=== PATIENT | female | born 1975 | race Caucasian/White ===

== ENCOUNTER 2018-08-17 08:33 | Day surgery (SDC) | payer OTHER ==
[2018-08-17] MEDS ORDERED: Xylocaine-Mpf 2% 5 Ml Vial IJ ONE (08:34)
[2018-08-17] MEDS ORDERED: DIPRIVAN 200 MG/20 ML IV ONE (08:34)
[2018-08-17] MEDS ORDERED: Ketamine HCl 50 MG/ML IJ ONE (08:34)
[2018-08-17] MEDS ORDERED: Depo-Medrol 40 MG/ML IM ONE (08:34)
--- NOTE | 2018-08-17 12:07 | XRAY ---
13 seconds of fluoroscopy was used in surgery for bilateral L4-L5 and L5-S1 MBB.
--- NOTE | 2018-08-17 12:07 | XRAY ---
Indication: Bilateral L4-S1 MBB. Intraoperative fluoroscopy was provided for 13 seconds. Single digital spot image submitted for interpretation demonstrates posterior needle tips projecting over the expected course of the left and right L4-S1 nerve roots. Correlate with intraoperative findings/report.
[2018-08-17] MEDS ORDERED: Lactated Ringers 1,000 ML IV ONE (14:52)
== END 2018-08-17 11:06 | disposition home or self-care (01) ==
LOC: SDC-PAIN 08:33
PROVIDERS: ATTEND Psychiatry & Neurology Pain Medicine
DX: M47.816 Spondylosis without myelopathy or radiculopathy, lumbar region (principal); I10 Essential (primary) hypertension; E78.5 Hyperlipidemia, unspecified; F32.9 Major depressive disorder, single episode, unspecified; Z79.899 Other long term (current) drug therapy
CPT/HCPCS: 64493; 64494; 72020; 77002; 82962; 84703; J1030; J2704

== ENCOUNTER 2018-10-05 08:58 | Day surgery (SDC) | payer OTHER ==
[2018-10-05] MEDS ORDERED: Marcaine 0.5% SDV 10 ML IJ ONE (08:59)
[2018-10-05] MEDS ORDERED: DIPRIVAN 200 MG/20 ML IV ONE (11:02)
[2018-10-05] MEDS ORDERED: Ketamine HCl 50 MG/ML ONE (11:02)
--- NOTE | 2018-10-05 12:08 | XRAY ---
Indication: Bilateral L4-S1 MBB. Intraoperative fluoroscopy was provided for 5 seconds. Single digital spot image submitted for interpretation demonstrates posterior needle tips projecting over the expected course of the left and right L4-S1 nerve roots. Correlate with intraoperative findings/report.
--- NOTE | 2018-10-05 12:10 | XRAY ---
5 seconds of fluoroscopy was used in surgery for bilateral L4-L5 and L5-S1 MBB.
[2018-10-05] MEDS ORDERED: Lactated Ringers 1,000 ML IV ONE (13:33)
== END 2018-10-05 11:27 | disposition home or self-care (01) ==
LOC: SDC-PAIN 08:58
PROVIDERS: ATTEND Psychiatry & Neurology Pain Medicine
DX: M47.816 Spondylosis without myelopathy or radiculopathy, lumbar region (principal); E11.9 Type 2 diabetes mellitus without complications; I10 Essential (primary) hypertension; E78.5 Hyperlipidemia, unspecified; F32.9 Major depressive disorder, single episode, unspecified
CPT/HCPCS: 64493; 64494; 72020; 77002; 82962; 84703; J2704

== ENCOUNTER 2018-11-23 08:59 | Day surgery (SDC) | payer OTHER ==
[2018-11-23] MEDS ORDERED: Marcaine 0.5% SDV 10 ML IJ ONE (09:00)
[2018-11-23] MEDS ORDERED: Depo-Medrol 40 MG/ML IM ONE (09:00)
[2018-11-23] MEDS ORDERED: Ketamine HCl 50 MG/ML ONE (10:03)
[2018-11-23] MEDS ORDERED: DIPRIVAN 200 MG/20 ML IV ONE (10:03)
--- NOTE | 2018-11-23 12:03 | XRAY ---
12 seconds fluoroscopy time in surgery for right shoulder injection.
--- NOTE | 2018-11-23 12:14 | XRAY ---
Indication: Right shoulder injection. Intraoperative fluoroscopy was provided for 12 seconds. Single digital spot image submitted for interpretation demonstrates needle tip projecting over the right superior glenohumeral joint. Small amount of contrast injected for needle tip placement. Correlate with intraoperative findings/report.
[2018-11-23] MEDS ORDERED: Lactated Ringers 1,000 ML IV ONE (13:45)
== END 2018-11-23 10:35 | disposition home or self-care (01) ==
LOC: SDC-PAIN 08:59
PROVIDERS: ATTEND Psychiatry & Neurology Pain Medicine
DX: M19.011 Primary osteoarthritis, right shoulder (principal); E11.9 Type 2 diabetes mellitus without complications; I10 Essential (primary) hypertension; E78.5 Hyperlipidemia, unspecified; F32.9 Major depressive disorder, single episode, unspecified; Z79.899 Other long term (current) drug therapy
CPT/HCPCS: 20610; 73030; 77002; 82962; 84703; J1030; J2704; Q9966

== ENCOUNTER 2019-01-11 08:25 | Day surgery (SDC) | payer OTHER ==
[2019-01-11] MEDS ORDERED: Depo-Medrol 40 MG/ML IM ONE (08:26)
[2019-01-11] MEDS ORDERED: Marcaine 0.5% SDV 10 ML IJ ONE (08:26)
[2019-01-11] MEDS ORDERED: Xylocaine 1% Vial 30 ML PF IJ ONE (08:26)
[2019-01-11] MEDS ORDERED: DIPRIVAN 200 MG/20 ML IV ONE (10:33)
[2019-01-11] MEDS ORDERED: Ketamine HCl 50 MG/ML ONE (10:33)
[2019-01-11] MEDS ORDERED: Lactated Ringers 1,000 ML IV ONE (13:57)
--- NOTE | 2019-01-11 16:26 | XRAY ---
22 seconds fluoroscopy time in surgery fro right L4-S1 RFA.
--- NOTE | 2019-01-12 06:35 | XRAY ---
Indication: Right L4-S1 RFA. Intraoperative fluoroscopy was provided for 22 seconds. AP, oblique, and lateral digital spot films reveal needle tips in the projection of the anticipated right L3-L5 nerve roots. Correlate with intraoperative findings/report.
== END 2019-01-11 11:08 | disposition home or self-care (01) ==
LOC: SDC-PAIN 08:25
PROVIDERS: ATTEND Psychiatry & Neurology Pain Medicine
DX: M47.816 Spondylosis without myelopathy or radiculopathy, lumbar region (principal); E11.9 Type 2 diabetes mellitus without complications; I10 Essential (primary) hypertension; E78.5 Hyperlipidemia, unspecified; F32.9 Major depressive disorder, single episode, unspecified; Z79.899 Other long term (current) drug therapy
CPT/HCPCS: 64635; 64636; 72100; 77002; 82962; 84703; J1030; J2001; J2704

== ENCOUNTER 2019-05-24 08:24 | Day surgery (SDC) | payer OTHER ==
[2019-05-24] MEDS ORDERED: Marcaine 0.5% SDV 10 ML IJ ONE (08:25)
[2019-05-24] MEDS ORDERED: Xylocaine 1% Vial 30 ML PF IJ ONE (08:25)
[2019-05-24] MEDS ORDERED: Depo-Medrol 40 MG/ML IM ONE (08:25)
[2019-05-24] MEDS ORDERED: Ketamine HCl 50 MG/ML ONE (09:58)
[2019-05-24] MEDS ORDERED: DIPRIVAN 200 MG/20 ML IV ONE (09:58)
--- NOTE | 2019-05-24 11:53 | XRAY ---
Indication: Left L4-S1 RFA. Intraoperative fluoroscopy was provided for 15 seconds. 4 digital spot images submitted for interpretation demonstrate posterior needle tips projecting over the expected course of the left L4-S1 nerve roots. Correlate with intraoperative findings/report.
--- NOTE | 2019-05-24 11:58 | XRAY ---
15 seconds of fluoroscopy was used in surgery for a left L4-L5 and L5-S1 RFA.
[2019-05-24] MEDS ORDERED: Lactated Ringers 1,000 ML IV ONE (13:09)
== END 2019-05-24 10:49 | disposition home or self-care (01) ==
LOC: SDC-PAIN 08:24
PROVIDERS: ATTEND Psychiatry & Neurology Pain Medicine
DX: M47.816 Spondylosis without myelopathy or radiculopathy, lumbar region (principal); E11.9 Type 2 diabetes mellitus without complications; I10 Essential (primary) hypertension; E78.5 Hyperlipidemia, unspecified; F41.8 Other specified anxiety disorders; Z79.899 Other long term (current) drug therapy
CPT/HCPCS: 64635; 64636; 72100; 77002; 82962; 84703; J1030; J2001; J2704

== ENCOUNTER 2020-11-20 06:46 | Day surgery (SDC) | payer OTHER ==
[2020-11-20] MEDS ORDERED: DIPRIVAN 200 MG/20 ML IV ONE (08:55)
[2020-11-20] MEDS ORDERED: Lactated Ringers 1,000 ML IV ONE (15:52)
== END 2020-11-20 07:55 | disposition home or self-care (01) ==
LOC: SDC-PAIN 06:46
PROVIDERS: ATTEND Psychiatry & Neurology Pain Medicine
DX: Z53.09 Procedure and treatment not carried out because of other contraindication (principal); M75.51 Bursitis of right shoulder; M19.011 Primary osteoarthritis, right shoulder; E11.9 Type 2 diabetes mellitus without complications
CPT/HCPCS: 82947; 84703; J2704

== ENCOUNTER 2020-12-18 06:24 | Day surgery (SDC) | payer OTHER ==
[2020-12-18] MEDS ORDERED: Depo-Medrol 40 MG/ML IM ONE (06:25)
[2020-12-18] MEDS ORDERED: BUPIVACAINE 0.5% VIAL IJ ONE (06:25)
[2020-12-18] MEDS ORDERED: Ketamine HCl 50 MG/ML ONE (08:39)
[2020-12-18] MEDS ORDERED: DIPRIVAN 200 MG/20 ML IV ONE (08:39)
[2020-12-18] MEDS ORDERED: Lactated Ringers 1,000 ML IV ONE (10:00)
--- NOTE | 2020-12-18 10:02 | XRAY ---
Indication: Right shoulder injection. Intraoperative fluoroscopy provided for 32 seconds. Single digital spot image submitted for interpretation demonstrates needle tip projecting right glenohumeral joint superiorly. Small amount of contrast injected for needle tip placement. Correlate with intraoperative findings/report.
--- NOTE | 2020-12-18 10:56 | XRAY ---
32 seconds fluoroscopy time in surgery for intra-articular injection of the right shoulder.
== END 2020-12-18 09:15 | disposition home or self-care (01) ==
LOC: SDC-PAIN 06:24
PROVIDERS: ATTEND Psychiatry & Neurology Pain Medicine
DX: M19.011 Primary osteoarthritis, right shoulder (principal); E11.9 Type 2 diabetes mellitus without complications; Z79.899 Other long term (current) drug therapy
CPT/HCPCS: 20610; 73030; 77002; 82947; 84703; J1030; J2704; Q9966

== ENCOUNTER 2022-01-21 15:20 | Day surgery (SDC) | payer OTHER ==
[2022-01-21] MEDS ORDERED: XYLOCAINE-MPF 1% 5ML SDV IJ ONE ×2 (15:21)
[2022-01-21] MEDS ORDERED: Marcaine Mpf 0.5% Vial 30 Ml IJ ONE ×3 (15:21)
[2022-01-21] MEDS ORDERED: Depo-Medrol 40 MG/ML IM ONE ×3 (15:21)
--- NOTE | 2022-01-21 19:47 | XRAY ---
Indication: Right shoulder injection. Intraoperative fluoroscopy provided for 14 seconds. Single digital spot image submitted for interpretation demonstrates needle tip projecting over the right glenohumeral joint superiorly. Small amount of contrast injected for needle tip placement. Correlate with intraoperative findings/report.
--- NOTE | 2022-01-21 19:49 | XRAY ---
Indication: Right knee injection. Intraoperative fluoroscopy provided for 8 seconds. Single digital spot image submitted for interpretation demonstrates needle tip projecting over the right femur intercondylar notch. Small amount of contrast injected for needle tip placement. Correlate with intraoperative findings/report.
--- NOTE | 2022-01-22 10:58 | XRAY ---
14 seconds of fluoroscopy was used in surgery for a right shoulder intra-articular injection.
--- NOTE | 2022-01-22 10:58 | XRAY ---
8 seconds of fluoroscopy was used in surgery for a right knee intra-articular injection.
== END 2022-01-21 17:30 | disposition home or self-care (01) ==
LOC: SDC-PAIN 15:20
PROVIDERS: ATTEND Psychiatry & Neurology Pain Medicine
DX: M17.11 Unilateral primary osteoarthritis, right knee (principal); M70.51 Other bursitis of knee, right knee; M19.011 Primary osteoarthritis, right shoulder; E11.9 Type 2 diabetes mellitus without complications; Z79.899 Other long term (current) drug therapy
CPT/HCPCS: 20610; 73030; 73560; 77002; 81025; 82947; J1030; Q9966

== ENCOUNTER 2024-05-10 08:35 | Day surgery (SDC) | payer MEDICARE, MEDICAID ==
[2024-05-10] MEDS ORDERED: Depo-Medrol 40 MG/ML IM ONE (08:36)
[2024-05-10] MEDS ORDERED: LIDOCAINE HCL 2% 100 MG/5 ML IJ ONE (08:36)
[2024-05-10 09:25] LABS: HCG URINE TEST NEGATIVE (NEGATIVE)
[2024-05-10] MEDS ORDERED: propofoL IV ONE (10:30)
--- NOTE | 2024-05-10 11:56 | XRAY ---
Indication: Bilateral L4-S1 MBB. Intraoperative fluoroscopy provided for 14 seconds. Single digital spot image submitted for interpretation demonstrates posterior needle tips projecting over the expected left and right L4-S1 nerve roots. Correlate with intraoperative findings/report.
--- NOTE | 2024-05-10 12:32 | XRAY ---
14 seconds of fluoroscopy was used in surgery for a bilateral L4-S1 MBB.
== END 2024-05-10 11:02 | disposition home or self-care (01) ==
LOC: SDC-PAIN 08:35
PROVIDERS: ATTEND Psychiatry & Neurology Pain Medicine
DX: M47.816 Spondylosis without myelopathy or radiculopathy, lumbar region (principal); E11.9 Type 2 diabetes mellitus without complications
CPT/HCPCS: 64493; 64494; 72020; 77002; 81025; 82947; J2704